=== PATIENT | female | born 1970 ===

== ENCOUNTER 2017-09-30 16:28 | Emergency (ER) | payer MEDICAID, OTHER ==
--- NOTE | 2017-09-30 17:40 | C.PDOC ---
History Of Present Illness 47 y/o female presents to ED with complaints of left shoulder pain developed after folding clothes earlier today. Patient denies direct trauma, change in sensation or any other complaints at this time. Time Seen by Provider: 09/30/17 17:31 Chief Complaint (Nursing): Upper Extremity Problem/Injury History Per: Patient History/Exam Limitations: no limitations Onset/Duration Of Symptoms: Hrs Current Symptoms Are (Timing): Still Present Quality: "Pain" Past Medical History Reviewed: Historical Data, Nursing Documentation, Vital Signs Vital Signs: Last Vital Signs Temp 98.2 F 09/30/17 18:46 Pulse 92 H 09/30/17 18:46 Resp 18 09/30/17 18:46 BP 122/65 09/30/17 18:46 Pulse Ox 97 10/01/17 16:00 - Medical History PMH: Graves' Disease Surgical History: Appendectomy, Tonsillectomy Family History: States: No Known Family Hx - Social History Hx Alcohol Use: No Hx Substance Use: No - Immunization History Hx Tetanus Toxoid Vaccination: No Hx Influenza Vaccination: No Hx Pneumococcal Vaccination: No Review Of Systems Except As Marked, All Systems Reviewed And Found Negative. Musculoskeletal: Positive for: Shoulder Pain Physical Exam - Physical Exam Appears: Non-toxic, No Acute Distress Skin: Normal Color, Warm, Dry, No Rash Head: Atraumatic, Normacephalic Eye(s): bilateral: Normal Inspection Oral Mucosa: Moist Neck: Normal ROM, Supple Chest: Symmetrical Extremity: Tenderness (Mild left shoulder ), Capillary Refill (<2 seconds), No Deformity, No Swelling Pulses: Left Brachial: Normal, Right Brachial: Normal Neurological/Psych: Oriented x3, Normal Motor, Normal Sensation ED Course And Treatment O2 Sat by Pulse Oximetry: 97 (RA) Pulse Ox Interpretation: Normal Disposition - Disposition Referrals: [facility] [Outside] [facility] [Outside] [facility] [place] [Outside] Disposition: HOME/ ROUTINE Disposition Time: 04:00 Condition: STABLE Additional Instructions: please see specialist return to er with worsening symptoms or concerns. Prescriptions: Lidocaine 5% [Lidoderm] 1 ea TD DAILY PRN #4 patch PRN Reason: Pain, Mild (1-3) Instructions: Shoulder Sprain (ED) Forms: [employer] ([place]) - Clinical Impression Clinical Impression: Shoulder pain, Sprain - Scribe Statement The provider has reviewed the documentation as recorded by the Margarita Smith All medical record entries made by the Margarita were at my direction and personally dictated by me. I have reviewed the chart and agree that the record accurately reflects my personal performance of the history, physical exam, medical decision making, and the department course for this patient. I have also personally directed, reviewed, and agree with the discharge instructions and disposition.
[2017-09-30 18:46] VITALS: BP 122/65; PULSE 92; RESP 18; TEMP 98.2
--- NOTE | 2017-10-01 10:17 | RAD ---
PROCEDURE: Radiographs of the Left Shoulder HISTORY: trauma COMPARISON: No prior. FINDINGS: BONES: Normal. No fracture. JOINTS: Glenohumeral articulation is maintained. Acromioclavicular joint narrowing. SOFT TISSUES: Normal. OTHER FINDINGS: None. IMPRESSION: No demonstrated fracture or dislocation.
[2017-10-01 15:53] VITALS: O2SAT 97
== END 2017-09-30 18:48 | disposition home or self-care (01) ==
LOC: C.ER 16:28
DX: S43.402A Unspecified sprain of left shoulder joint, initial encounter (principal); X50.9XXA Other and unspecified overexertion or strenuous movements or postures, initial encounter; Y92.89 Other specified places as the place of occurrence of the external cause

== ENCOUNTER 2017-12-17 14:42 | Emergency (ER) | payer MEDICAID, OTHER ==
[2017-12-17 15:38] VITALS: TEMP 97.8
--- NOTE | 2017-12-17 16:03 | RAD ---
HISTORY: chest pain COMPARISON: Chest x-ray performed 08/25/15 TECHNIQUE: Chest PA and lateral FINDINGS: Examination limited by habitus. LUNGS: No focal consolidation. Please note that chest x-ray has limited sensitivity for the detection of pulmonary masses. PLEURA: No significant pleural effusion identified. No definite pneumothorax . CARDIOVASCULAR: Heart size appears within normal limits. OSSEOUS STRUCTURES: Degenerative changes of the spine. VISUALIZED UPPER ABDOMEN: Mild elevation of the right hemidiaphragm. OTHER FINDINGS: None. IMPRESSION: No focal consolidation identified.
[2017-12-17 16:10] LABS: SQUAMOUS EPITHIAL 1 /hpf (0-5); URINE BACTERIA RARE (<OCC); URINE BILIRUBIN NEGATIVE (NEGATIVE); URINE BLOOD NEGATIVE (NEGATIVE); URINE CLARITY Hazy (Clear); URINE COLOR Yellow (YELLOW); URINE GLUCOSE (UA) 2+ mg/dL (Normal); URINE HYALINE CAST 0-2 /lpf (0-2); URINE LEUKOCYTE ESTERASE NEG Leu/uL (Negative); URINE NITRATE NEGATIVE (NEGATIVE); URINE PROTEIN NEGATIVE (NEGATIVE); URINE UROBILINOGEN NORMAL mg/dL (0.2-1.0)
[2017-12-17 16:28] LABS: BASO # 0.1 K/uL (0.0-0.2); BASO % 0.7 % (0.0-2.0); EOS # 0.5 K/uL (0.0-0.7); EOS % 3.4 % (0.0-4.0); HEMOGLOBIN 13.5 g/dL (11.0-16.0); LYMPH # 1.8 K/uL (1.0-4.3); LYMPH % 11.6 % (20.0-40.0); MEAN CELL VOLUME 82.6 fL (81.0-99.0); MEAN CORPUSCULAR HEMOGLOBIN 27.1 pg (27.0-31.0); MEAN CORPUSCULAR HGB CONC 32.8 g/dL (33.0-37.0); MEAN PLATELET VOLUME 9.5 fL (7.2-11.7); MONO # 0.6 K/uL (0.0-0.8); MONO % 4.1 % (0.0-10.0); NEUT # 12.5 K/uL (1.8-7.0); NEUT % 80.2 % (50.0-75.0); NRBC % 0.1 % (0.0-2.0); RBC 4.99 Mil/uL (3.80-5.20); RED CELL DISTRIBUTION WIDTH 16.7 % (11.5-14.5); WHITE BLOOD COUNT 15.6 K/uL (4.8-10.8)
[2017-12-17 16:46] LABS: PROTHROMBIN TIME 11.5 SECONDS (9.7-12.2)
[2017-12-17 16:50] LABS: BLOOD UREA NITROGEN 19 mg/dL (7-17)
[2017-12-17 16:51] LABS: ALB/GLOB RATIO 1.1 (1.0-2.1); ALT/SGPT 35 U/L (9-52); AST/SGOT 25 U/L (14-36); CALCIUM 9.6 mg/dl (8.6-10.4); GFR AFRICAN-AMERICAN > 60; GFR NON-AFRICAN AMERICAN > 60
[2017-12-17 17:03] LABS: CK-MB 1.13 ng/mL (0.0-3.38)
[2017-12-17] MEDS ORDERED: Sodium Chloride 0.9% 1,000 ML IV ONE (17:11)
[2017-12-17 17:30] LABS: FREE T4 0.86 ng/dL (0.78-2.19)
[2017-12-17] MEDS ORDERED: Sodium Chloride 0.9% 1,000 ML ONE (17:46)
[2017-12-17] MEDS ORDERED: Iodixanol 320 MG/ML 100 ML BOTTLE IV ONE (18:01)
--- NOTE | 2017-12-17 18:46 | CT ---
PROCEDURE: CT HEAD WITHOUT CONTRAST. HISTORY: Headache COMPARISON: None available. TECHNIQUE: Axial computed tomography images were obtained through the head/brain without intravenous contrast. Radiation dose: Total exam DLP = 1014.65 mGy-cm. This CT exam was performed using one or more of the following dose reduction techniques: Automated exposure control, adjustment of the mA and/or kV according to patient size, and/or use of iterative reconstruction technique. FINDINGS: Extensive streak artifact particularly at the skullbase resulting from external artifact. HEMORRHAGE: No intracranial hemorrhage. BRAIN: No mass effect or edema. No atrophy or chronic microvascular ischemic changes. VENTRICLES: No hydrocephalus. CALVARIUM: Unremarkable. PARANASAL SINUSES: Fluid/partial opacification of the left maxillary sinus. Mucosal thickening of the right maxillary sinus. MASTOID AIR CELLS: Unremarkable as visualized. No inflammatory changes. OTHER FINDINGS: None. IMPRESSION: Limited study. No acute intracranial findings identified. Fluid/partial opacification of the left maxillary sinus. Mucosal thickening of the right maxillary sinus. Correlate clinically for possibility of sinusitis.
--- NOTE | 2017-12-17 19:00 | CT ---
CTA chest PE protocol Indication: Left chest pain. r/o PE Technique: Contiguous axial images were obtained through the chest with intravenous contrast enhancement. Sagittal and coronal reconstructions were generated and reviewed. This CT exam was performed using 1 or more of the following dose reduction techniques: Automated exposure control, adjustment of the MAA and/or kV according to patient size, and/or use of iterative reconstruction technique. IV Contrast: 100 mL Visipaque IV Radiation dose (DLP): 543.82 MGy-cm. Comparison: Chest x-ray performed 12/17/17 Findings: Examination limited by habitus, respiratory artifact, as well as patient inability to elevate right arm. Visualized portions of the inferior thyroid gland appear unremarkable. The mediastinal and hilar vascular structures appear within normal limits. The heart appears within normal limits of size. There is suboptimal opacification of the pulmonary arteries limiting evaluation for pulmonary embolus. Given this limitation, there are no visible intraluminal filling defects within the central pulmonary arteries to suggest central pulmonary embolism. Mild hazy nonspecific upper lobe opacities; infectious or inflammatory etiologies cannot be entirely excluded. No focal consolidation. No pleural effusion. No pneumothorax. No suspicious pulmonary nodules measuring greater than 5 mm. Limited visualized portions of the upper abdomen appear grossly unremarkable. No acute osseous abnormality is detected. Impression: Limited study. There is suboptimal opacification of the pulmonary arteries limiting evaluation for pulmonary embolus. Given this limitation, there are no visible intraluminal filling defects within the central pulmonary arteries to suggest central pulmonary embolism. Extensive streak artifact precludes adequate evaluation of the remainder of the pulmonary arteries. Mild hazy nonspecific upper lobe opacities; infectious or inflammatory etiologies cannot be entirely excluded. Findings discussed with Dr. Peterson on 12/17/17 at 6:51 p.m.
--- NOTE | 2017-12-17 19:10 | C.PDOC ---
Time Seen by Provider: 12/17/17 15:14 Chief Complaint (Nursing): Headache History Per: Patient Onset/Duration Of Symptoms: Hrs (today), Gradual Current Symptoms Are (Timing): Still Present Severity: Moderate Quality: "Pain" Additional History Per: Prior Records Past Medical History Reviewed: Historical Data, Nursing Documentation, Vital Signs Vital Signs: Last Vital Signs Temp 97.8 F 12/17/17 15:36 Pulse 84 12/17/17 15:36 Resp 18 12/17/17 15:36 BP 129/85 12/17/17 15:36 Pulse Ox 96 12/17/17 15:36 - Medical History PMH: Asthma, Diabetes, Graves' Disease Surgical History: Appendectomy, Tonsillectomy Family History: States: Unknown Family Hx - Social History Hx Alcohol Use: No Hx Substance Use: No - Immunization History Hx Tetanus Toxoid Vaccination: No Hx Influenza Vaccination: No Hx Pneumococcal Vaccination: No Review Of Systems Except As Marked, All Systems Reviewed And Found Negative. Constitutional: Negative for: Fever, Weakness Cardiovascular: Positive for: Chest Pain Respiratory: Negative for: Shortness of Breath, Hemoptysis Gastrointestinal: Negative for: Nausea, Vomiting, Abdominal Pain Musculoskeletal: Negative for: Neck Pain, Back Pain Skin: Negative for: Rash Neurological: Positive for: Headache. Negative for: Weakness, Numbness Physical Exam - Physical Exam Appears: Non-toxic, No Acute Distress Skin: Normal Color, Warm, Dry, No Rash Head: Atraumatic, Normacephalic Eye(s): bilateral: PERRL, EOMI Neck: Normal ROM, Supple Chest: Symmetrical, No Deformity, Tenderness (left chest wall), No Subcutaneous Emphysema Cardiovascular: Rhythm Regular Respiratory: Normal Breath Sounds, No Accessory Muscle Use Gastrointestinal/Abdominal: Soft, No Tenderness Back: No CVA Tenderness Extremity: Normal ROM Neurological/Psych: Oriented x3, Normal Motor, Normal Sensation ED Course And Treatment - Laboratory Results Result Diagrams: 12/17/17 16:20 12/17/17 16:20 ECG: Interpreted By Me, Viewed By Me ECG Rhythm: Sinus Rhythm, Nonspecific Changes ECG Interpretation: No Acute Changes Rate From EC O2 Sat by Pulse Oximetry: 96 Pulse Ox Interpretation: Normal - Radiology CXR: Viewed By Me, Read By Radiologist CXR Interpretation: Yes: No Acute Disease - CT Scan/US CT head Other Rad Studies (CT/US): Read By Radiologist, Radiology Report Reviewed CT/US Interpretation: IMPRESSION: Limited study. No acute intracranial findings identified. Fluid/partial opacification of the left maxillary sinus. Mucosal thickening of the right maxillary sinus. Correlate clinically for possibility of sinusitis. CTA of chest Other Rad Studies (CT/US): Read By Radiologist, Radiology Report Reviewed CT/US Interpretation: Impression: Limited study. There is suboptimal opacification of the pulmonary arteries limiting evaluation for pulmonary embolus. Given this limitation, there are no visible intraluminal filling defects within the central pulmonary arteries to suggest central pulmonary embolism. Extensive streak artifact precludes adequate evaluation of the remainder of the pulmonary arteries. Mild hazy nonspecific upper lobe opacities ; infectious or inflammatory etiologies cannot be entirely excluded. Progress - Interventions Interventions:: Observation - Medications Administered Oral: Acetaminophen, Aspirin - Data Reviewed Data Reviewed: Lab, Diagnostic imaging, EKG, Old records - Patient Status Patient status: Mostly improved - Continuity of Care Discussed patient case with:: Patient, ED Nurse - Patient Plan Patient Plan: Discharge, F/U with PCP, Continue present meds Disposition Counseled Patient/Family Regarding: Studies Performed, Diagnosis, Need For Followup, Rx Given - Disposition Referrals: Manda Stringer MD [Staff Provider] - Disposition: HOME/ ROUTINE Disposition Time: 19:11 Condition: IMPROVED Additional Instructions: Follow up with your doctor this week. Return to the ER if you develop fever, vomiting, weakness, numbness, shortness of breath, worsening of symptoms or if you have any other concerns. Prescriptions: Doxycycline Hyclate 100 mg PO BID #14 capsule Oxymetazoline 0.05% [Oxymetazoline HCl 30 Ml] 2 sprays NS BID #1 bottle Instructions: Sinusitis (ED) Forms: [facility] ([place]), General Discharge Instructions - Clinical Impression Clinical Impression: Maxillary sinusitis, Non-cardiac chest pain
[2017-12-17 19:27] VITALS: BP 135/67; PULSE 87; RESP 20; O2SAT 95
--- NOTE | 2017-12-18 16:33 | CARD ---
APPROVED REPORT EKG Measurement Heart [id number] <Conclusion> Normal sinus rhythm Normal ECG
== END 2017-12-17 19:36 | disposition home or self-care (01) ==
LOC: C.ER 14:42
DX: J32.0 Chronic maxillary sinusitis (principal); R07.89 Other chest pain; E11.9 Type 2 diabetes mellitus without complications; E05.00 Thyrotoxicosis with diffuse goiter without thyrotoxic crisis or storm
CPT/HCPCS: 70450; 71046; 71275; 80053; 81001; 84439; 84443; 84484; 84703; 85025; 85378; 85610; 85730; 93005; 96360; 99285; J7040; Q9967